=== PATIENT | female | born 1940 | race Caucasian/White ===

== ENCOUNTER 2016-06-23 16:27 | Inpatient (IN) | payer OTHER, BC ==
[~2016-06-23] VITALS: Ht 165.1 cm; Wt 87.5 kg
[2016-06-23] VITALS (8 sets, daily range): BP systolic 144–158; BP diastolic 73–85
[2016-06-23 16:45] LABS: BASE EXCESS -3.8 mEq/L (-3 to +3); BICARBONATE 19.2 mEq/L (22-26); CARBOXY HGB 1.6 % (0-5); COMMENTS - BLOOD GASES +C; FI02 21 %; METHEMOGLOBIN 1.1 % (0-1.5); PCO2 29 mm Hg (35-45); PO2 94 mm Hg (80-100); SITE LR +A; TOTAL RESP RATE 22 resp/min; pH 7.43 (7.35-7.45)
[2016-06-23 17:00] LABS: POINT-OF-CARE METER ID UU14100415
[2016-06-23 17:05] LABS: HEMATOCRIT 39.2 % (36.0-46.0); MCH 30.8 PG (29.0-34.0); MCHC 33.4 G/DL (30.0-36.0); MEAN PLAT.VOLUME 10.5 uM^3 (9.5-12.4); PLATELET COUNT 269 K/uL (156-360); RBC DIS.WIDTH-CV 13.6 % (11.8-14.6); RBC DIS.WIDTH-SD 45.1 % (39-53); RED BLOOD COUNT 4.26 M/uL (3.80-5.20); WHITE BLOOD COUNT 12.3 K/uL (4.1-10.2)
[2016-06-23 17:15] LABS: CHLORIDE 101 mEq/L (99-109); POTASSIUM 4.4 mEq/L (3.7-5.4); SODIUM 138 mEq/L (136-147)
[2016-06-23 17:17] LABS: GLUCOSE 156 mg/dL (70-99)
[2016-06-23 17:18] LABS: ANION GAP 12 MEQ/L (2-14)
[2016-06-23 17:21] LABS: GFR ESTIMATE (CALCULATED) 47 mL/min/; UREA NITROGEN (BUN) 13 mg/dL (9-23)
[2016-06-23 17:28] LABS: TROP-I INTERPRETATION NEGATIVE; TROPONIN-I < 0.01 ng/mL (0.0-0.30)
[2016-06-23 20:23] LABS: EOSINOPHIL (%) 0 % (0-5); HEMATOCRIT 37.8 % (36.0-46.0); IMMATURE GRANULOCYTE (%) 0.2 % (0.0-0.7); LYMPHOCYTE COUNT 0.8 K/uL (1.0-2.8); MCH 31.7 PG (29.0-34.0); MCHC 34.4 G/DL (30.0-36.0); MCV 92.2 FL (83-99); MONOCYTE (%) 4.1 % (3-12); MONOCYTE COUNT 0.4 K/uL (0-0.8); NEUTROPHIL (%) 87.9 % (45-76); NEUTROPHIL COUNT 8.7 K/uL (1.8-6.4); PLATELET COUNT 214 K/uL (156-360); RBC DIS.WIDTH-CV 13.5 % (11.8-14.6); RBC DIS.WIDTH-SD 45.2 % (39-53); WHITE BLOOD COUNT 9.8 K/uL (4.1-10.2)
[2016-06-23 20:46] LABS: ALKALINE PHOSPHATASE 71 IU/L (3-129); ANION GAP 10 MEQ/L (2-14); CHLORIDE 100 MEQ/L (99-109); MAGNESIUM 1.6 mg/dl (1.3-2.7); SAMPLE HEMOLYSIS CHECK 0; SAMPLE ICTERIC CHECK 0; SAMPLE LIPEMIA CHECK 0; SODIUM 134 MEQ/L (136-147); UREA NITROGEN (BUN) 12 mg/dL (9-23)
[2016-06-23 20:47] LABS: GFR ESTIMATE (CALCULATED) > 59 mL/min/; GLUCOSE 105 mg/dL (70-99)
[2016-06-23 21:28] LABS: METH RESISTANT S AUREUS PCR NEGATIVE (NEGATIVE)
[2016-06-23 21:29] LABS: PROBE CHECK PASS; SPECIMEN PROCESSING CONTROL PASS
[2016-06-23 21:33] LABS: ADD MIUA? NO; BILIRUBIN NEGATIVE; BLOOD NEGATIVE; COLOR YELLOW ((YELLOW)); GLUCOSE (STRIP) 50; KETONES 5; LEUKOCYTES NEGATIVE; NITRITE NEGATIVE; PROTEIN (STRIP) NEGATIVE; SPECIFIC GRAVITY 1.006 (1.000-1.030); UCUL ADDED? NO; UROBILINOGEN 0.2 MG/DL (0.2-1.0)
[2016-06-24] VITALS (23 sets, daily range): BP systolic 107–155; BP diastolic 25–79
[2016-06-24 01:00] LABS: CHLORIDE 104 mEq/L (99-109); POTASSIUM 4.1 mEq/L (3.7-5.4); SODIUM 136 mEq/L (136-147)
[2016-06-24 01:01] LABS: MAGNESIUM 1.6 mg/dL (1.3-2.7)
[2016-06-24 01:02] LABS: GLUCOSE 125 mg/dL (70-99)
[2016-06-24 01:04] LABS: ANION GAP 10 MEQ/L (2-14)
[2016-06-24 01:06] LABS: GFR ESTIMATE (CALCULATED) > 59 mL/min/
[2016-06-24 01:07] LABS: UREA NITROGEN (BUN) 10 mg/dL (9-23)
[2016-06-24 01:09] LABS: POINT-OF-CARE METER ID UU14174217; POINT-OF-CARE USER ID RADDRS44
[2016-06-24 05:58] LABS: HEMATOCRIT 35.6 % (36.0-46.0); MCH 32.3 PG (29.0-34.0); MCHC 35.1 G/DL (30.0-36.0); MEAN PLAT.VOLUME 11.3 uM^3 (9.5-12.4); PLATELET COUNT 209 K/uL (156-360); RBC DIS.WIDTH-CV 13.6 % (11.8-14.6); RBC DIS.WIDTH-SD 45.3 % (39-53); RED BLOOD COUNT 3.87 M/uL (3.80-5.20); WHITE BLOOD COUNT 8.9 K/uL (4.1-10.2)
[2016-06-24 06:18] LABS: INTER. NORMALIZED RATIO 1.1; PROTHROMBIN TIME 11.5 (9.2-11.2); PTT 30.6 (25-32)
[2016-06-24 06:19] LABS: ALKALINE PHOSPHATASE 60 IU/L (3-129); ANION GAP 8 MEQ/L (2-14); CHLORIDE 101 MEQ/L (99-109); GFR ESTIMATE (CALCULATED) > 59 mL/min/; GLUCOSE 115 mg/dL (70-99); POTASSIUM 3.6 MEQ/L (3.7-5.4); SAMPLE HEMOLYSIS CHECK 0; SAMPLE ICTERIC CHECK 0; SAMPLE LIPEMIA CHECK 0; SODIUM 134 MEQ/L (136-147); UREA NITROGEN (BUN) 8 mg/dL (9-23)
[2016-06-24 06:30] LABS: MAGNESIUM 1.6 mg/dl (1.3-2.7)
[2016-06-24 06:39] LABS: TOTAL BILIRUBIN 0.7 MG/DL (0.0-1.0)
[2016-06-24 11:24] LABS: POINT-OF-CARE METER ID UU14174217
[2016-06-24 17:16] LABS: POINT-OF-CARE METER ID UU14174217
[2016-06-24 22:29] LABS: ANION GAP 9 MEQ/L (2-14); CHLORIDE 105 MEQ/L (99-109); GFR ESTIMATE (CALCULATED) > 59 mL/min/; GLUCOSE 130 mg/dL (70-99); MAGNESIUM 1.8 mg/dl (1.3-2.7); POTASSIUM 3.6 MEQ/L (3.7-5.4); SAMPLE HEMOLYSIS CHECK 0; SAMPLE ICTERIC CHECK 0; SAMPLE LIPEMIA CHECK 0; SODIUM 139 MEQ/L (136-147); UREA NITROGEN (BUN) 10 mg/dL (9-23)
[2016-06-25] VITALS (12 sets, daily range): BP systolic 119–156; BP diastolic 59–96
[2016-06-25 09:08] LABS: LYME DISEASE SEROLOGY SCREEN NEGATIVE (NEGATIVE)
[2016-06-25 12:35] LABS: TROP-I INTERPRETATION NEGATIVE; TROPONIN-I 0.15 ng/mL (0.0-0.30)
[2016-06-26] VITALS (7 sets, daily range): BP systolic 115–165; BP diastolic 56–71
[2016-06-26] MEDS ORDERED: TRAMADOL HCL50 MG PO ×2 (04:38→04:39)
[2016-06-26 05:45] LABS: EOSINOPHIL COUNT 0.1 K/uL (0-0.3); HEMATOCRIT 35.4 % (36.0-46.0); IMMATURE GRANULOCYTE (%) 0.3 % (0.0-0.7); LYMPHOCYTE COUNT 1.8 K/uL (1.0-2.8); MCH 31.6 PG (29.0-34.0); MCHC 33.9 G/DL (30.0-36.0); MCV 93.2 FL (83-99); MEAN PLAT.VOLUME 11.5 uM^3 (9.5-12.4); MONOCYTE (%) 15.3 % (3-12); MONOCYTE COUNT 1.1 K/uL (0-0.8); NEUTROPHIL (%) 57.6 % (45-76); NEUTROPHIL COUNT 4.1 K/uL (1.8-6.4); PLATELET COUNT 181 K/uL (156-360); RBC DIS.WIDTH-CV 13.8 % (11.8-14.6); WHITE BLOOD COUNT 7.1 K/uL (4.1-10.2)
[2016-06-26 06:15] LABS: ALKALINE PHOSPHATASE 66 IU/L (3-129); ANION GAP 10 MEQ/L (2-14); CHLORIDE 106 MEQ/L (99-109); GFR ESTIMATE (CALCULATED) > 59 mL/min/; POTASSIUM 3.5 MEQ/L (3.7-5.4); SAMPLE HEMOLYSIS CHECK 0; SAMPLE ICTERIC CHECK 0; SAMPLE LIPEMIA CHECK 0; SODIUM 144 MEQ/L (136-147); TOTAL BILIRUBIN 0.6 MG/DL (0.0-1.0); UREA NITROGEN (BUN) 6 mg/dL (9-23)
[2016-06-26 06:22] LABS: GLUCOSE 90 mg/dL (70-99)
[2016-06-26 08:22] LABS: INTACT PARATHYROID HORMONE 63 pg/mL (10-69)
[2016-06-26] MEDS ORDERED: LOSARTAN POTASS25 MG PO (13:25)
[2016-06-26] MEDS ORDERED: CARVEDILOL6.25 MG PO (13:25)
== END 2016-06-26 14:57 | disposition home or self-care (01) | DRG 243 ==
LOC: EME 16:27 → CATH 17:34 → 4WEST 17:35
PROVIDERS: Emergency Medicine; Hospitalist; Internal Medicine Cardiovascular Disease; Internal Medicine Nephrology; Obstetrics & Gynecology
PROC: 02HK3JZ Insertion of Pacemaker Lead into Right Ventricle, Percutaneous Approach (ICD-10-PCS; principal; 2016-06-23)
PROC: 02H63JZ Insertion of Pacemaker Lead into Right Atrium, Percutaneous Approach (ICD-10-PCS; 2016-06-24)
PROC: 02PA3MZ Removal of Cardiac Lead from Heart, Percutaneous Approach (ICD-10-PCS; 2016-06-24)
PROC: 02HK3JZ Insertion of Pacemaker Lead into Right Ventricle, Percutaneous Approach (ICD-10-PCS; 2016-06-24)
PROC: 0JH606Z Insertion of Pacemaker, Dual Chamber into Chest Subcutaneous Tissue and Fascia, Open Approach (ICD-10-PCS; 2016-06-24)
DX: I44.2 Atrioventricular block, complete (principal); I42.9 Cardiomyopathy, unspecified; R55 Syncope and collapse; E87.5 Hyperkalemia; E83.52 Hypercalcemia; F41.9 Anxiety disorder, unspecified; G89.29 Other chronic pain; F10.21 Alcohol dependence, in remission; Z85.3 Personal history of malignant neoplasm of breast; Z87.891 Personal history of nicotine dependence
CPT/HCPCS: 36600; 71010; 80047; 80048; 80048 91; 80053; 81003; 82330; 82803; 82948; 83605; 83735; 83880; 83970; 84100; 84443; 84484; 84999; 85025; 85027; 85610; 85730; 86618; 87641; 93005; 93306; 94799; 99281; 99285; C1779; C1785; C1892; C1894; C1898; J0690; J1200; J1644; J1815; J2060; J2250; J2405; J3010; S0020; S0028

== ENCOUNTER → 2016-07-26 | Outpatient (CLI) | payer OTHER, BC ==
[~2016-07-26] MED LIST: CARVEDILOL6.25 MG PO; LOSARTAN POTASS25 MG PO; TRAMADOL HCL50 MG PO
== END | disposition home or self-care (01) ==
LOC: NUC 07-21 07:30
DX: R94.31 Abnormal electrocardiogram [ECG] [EKG] (principal); I42.9 Cardiomyopathy, unspecified
CPT/HCPCS: 78452; 93017; A9500; J2785

== ENCOUNTER 2017-05-05 22:25 | Emergency (ER) | payer OTHER, BC ==
[~2017-05-05] VITALS: Ht 165.1 cm; Wt 63.3 kg
[2017-05-06 02:50] VITALS: BP 122/66
== END 2017-05-06 02:50 ==
LOC: EME → EDBD 22:25 → EME 22:25
DX: S70.02XA Contusion of left hip, initial encounter (principal); W19.XXXA Unspecified fall, initial encounter
CPT/HCPCS: 73502; 99281; 99283

== ENCOUNTER 2017-05-15 04:22 | Emergency (ER) | payer OTHER, BC ==
[~2017-05-15] VITALS: Ht 165.1 cm; Wt 90.9 kg
[2017-05-15 10:00] VITALS: BP 114/72
[2017-05-15] MEDS ORDERED: IBUPROFEN400 MG PO (11:30)
[2017-05-15] MEDS ORDERED: PERCOCET 5/31 TABLET PO (11:30)
== END 2017-05-15 11:55 ==
LOC: EME 04:22
DX: M25.552 Pain in left hip (principal); S70.02XD Contusion of left hip, subsequent encounter; W18.30XD Fall on same level, unspecified, subsequent encounter
CPT/HCPCS: 73700

== ENCOUNTER 2017-05-17 15:23 | Inpatient (IN) | payer OTHER, BC ==
[~2017-05-17] VITALS: Ht 165.1 cm; Wt 95.1 kg
[~2017-05-17 15:23] MED LIST changes: +IBUPROFEN400 MG PO; +PERCOCET 5/31 TABLET PO
[2017-05-17 16:24] LABS: BASOPHIL (%) 0.4 % (0-1); EOSINOPHIL COUNT 0.1 K/uL (0-0.3); HEMATOCRIT 39.7 % (36.0-46.0); HEMOGLOBIN 13.3 G/DL (11.9-15.5); IMMATURE GRANULOCYTE (%) 0.8 % (0.0-0.7); LYMPHOCYTE (%) 10.8 % (15-42); MCH 30.2 PG (29.0-34.0); MCHC 33.5 G/DL (30.0-36.0); MCV 90.2 FL (83-99); MONOCYTE (%) 9.3 % (3-12); MONOCYTE COUNT 0.8 K/uL (0-0.8); NEUTROPHIL (%) 77.7 % (45-76); PLATELET COUNT 302 K/uL (156-360); RBC DIS.WIDTH-CV 15.2 % (11.8-14.6); RBC DIS.WIDTH-SD 50.4 % (39-53)
[2017-05-17 16:32] LABS: CHLORIDE 103 mEq/L (99-109); POTASSIUM 3.7 mEq/L (3.7-5.4); SODIUM 140 mEq/L (136-147)
[2017-05-17 16:34] LABS: GLUCOSE 118 mg/dL (70-99)
[2017-05-17 16:38] LABS: CREATININE 0.7 mg/dL (0.6-1.3); GFR ESTIMATE (CALCULATED) > 59 mL/min/
[2017-05-17 16:39] LABS: UREA NITROGEN (BUN) 16 mg/dL (9-23)
[2017-05-17 19:56] LABS: APPEARANCE TURBID ((CLEAR)); BILIRUBIN NEGATIVE; BLOOD MODERATE; COLOR AMBER ((YELLOW)); GLUCOSE (STRIP) NEGATIVE; KETONES 5; LEUKOCYTES LARGE; NITRITE NEGATIVE; PROTEIN (STRIP) 100; SPECIFIC GRAVITY 1.011 (1.000-1.030); UROBILINOGEN 0.2 MG/DL (0.2-1.0)
[2017-05-17 20:20] LABS: EPITHELIAL CELLS 3+ /HPF
[2017-05-17 20:21] LABS: BACTERIA 4+ /HPF; MUCUS NONE SEEN /LPF; RED BLOOD CELLS NONE SEEN /HPF (0-5); WHITE BLOOD CELLS TNTC /HPF (0-5)
[2017-05-17] MEDS ORDERED: IBUPROFEN600 MG PO (20:35)
[2017-05-17] MEDS ORDERED: DAILY VITE1 EAC1 PO (20:35)
[2017-05-17] MEDS ORDERED: VITAMIN D31000 UNIT PO (20:35)
[2017-05-17] MEDS ORDERED: COZAAR25 MG PO (20:35)
[2017-05-18 04:37] VITALS: BP 162/97
[2017-05-18 05:34] LABS: BASOPHIL (%) 0.3 % (0-1); EOSINOPHIL (%) 0 % (0-5); HEMATOCRIT 41.5 % (36.0-46.0); HEMOGLOBIN 13.6 G/DL (11.9-15.5); IMMATURE GRANULOCYTE (%) 0.5 % (0.0-0.7); LYMPHOCYTE COUNT 0.7 K/uL (1.0-2.8); MCH 29.4 PG (29.0-34.0); MCHC 32.8 G/DL (30.0-36.0); MCV 89.8 FL (83-99); MONOCYTE COUNT 0.2 K/uL (0-0.8); NEUTROPHIL (%) 88.2 % (45-76); NEUTROPHIL COUNT 6.6 K/uL (1.8-6.4); PLATELET COUNT 328 K/uL (156-360); RBC DIS.WIDTH-CV 15.2 % (11.8-14.6); RBC DIS.WIDTH-SD 50.2 % (39-53); RED BLOOD COUNT 4.62 M/uL (3.80-5.20); WHITE BLOOD COUNT 7.5 K/uL (4.1-10.2)
[2017-05-18 05:55] LABS: CHLORIDE 102 MEQ/L (99-109); CREATININE 0.5 MG/DL (0.6-1.3); GFR ESTIMATE (CALCULATED) > 59 mL/min/; GLUCOSE 126 mg/dL (70-99); POTASSIUM 4.2 MEQ/L (3.7-5.4); SODIUM 140 MEQ/L (136-147); UREA NITROGEN (BUN) 17 mg/dL (9-23)
[2017-05-18 08:12] VITALS: BP 152/84
[2017-05-18 11:52] VITALS: BP 129/66
[2017-05-18 16:20] VITALS: BP 134/72
[2017-05-18 20:24] VITALS: BP 149/71
[2017-05-18 23:59] VITALS: BP 147/66
[2017-05-19 03:50] VITALS: BP 154/70
[2017-05-19 08:40] VITALS: BP 132/69
[2017-05-19 12:27] VITALS: BP 148/70
[2017-05-19 16:30] VITALS: BP 136/82
[2017-05-19 19:54] VITALS: BP 125/68
[2017-05-20 00:06] VITALS: BP 132/65
[2017-05-20 04:14] VITALS: BP 140/69
[2017-05-20 08:30] VITALS: BP 162/78
[2017-05-20 13:05] VITALS: BP 155/75
[2017-05-20 15:00] VITALS: BP 120/62
[2017-05-20 19:42] VITALS: BP 141/72
[2017-05-21 00:18] VITALS: BP 151/67
[2017-05-21 08:30] VITALS: BP 145/67
[2017-05-21 12:14] VITALS: BP 158/77
[2017-05-21 16:56] VITALS: BP 125/65
[2017-05-21 20:52] VITALS: BP 139/67
[2017-05-21 23:14] VITALS: BP 126/66
[2017-05-22 08:29] VITALS: BP 162/77
[2017-05-22 09:48] VITALS: BP 162/77
[2017-05-22] MEDS ORDERED: SENNA PLUS TAB1 EACH PO (15:08)
[2017-05-22] MEDS ORDERED: BISACODYL5 MG PO (15:08)
[2017-05-22] MEDS ORDERED: GABAPENTIN100 MG PO (15:08)
[2017-05-22] MEDS ORDERED: Salonpas 4% Patch TD (15:09)
[2017-05-22] MEDS ORDERED: DEXAMETHASONE4 MG PO (15:09)
[2017-05-22] MEDS ORDERED: MORPHINE SULFAT15 M1 PO (15:10)
[2017-05-22] MEDS ORDERED: ENDOCET 5-3251 EACH PO (15:10)
== END 2017-05-22 19:40 | DRG 552 ==
LOC: EME 15:23 → EDOF 20:36 → 3EAST 20:36 → ENRESERV 20:46 → 3EAST 05-18 04:20
PROVIDERS: Emergency Medicine; Hospitalist
DX: S32.049A Unspecified fracture of fourth lumbar vertebra, initial encounter for closed fracture (principal); M84.48XA Pathological fracture, other site, initial encounter for fracture; S32.059A Unspecified fracture of fifth lumbar vertebra, initial encounter for closed fracture; W01.0XXA Fall on same level from slipping, tripping and stumbling without subsequent striking against object, initial encounter; I42.9 Cardiomyopathy, unspecified; G89.29 Other chronic pain; N39.0 Urinary tract infection, site not specified; N39.490 Overflow incontinence; Y92.009 Unspecified place in unspecified non-institutional (private) residence as the place of occurrence of the external cause; Z95.0 Presence of cardiac pacemaker; Z85.3 Personal history of malignant neoplasm of breast
CPT/HCPCS: 62304; 71046; 71250; 72131; 72132; 73700; 80048; 81003; 85025; 97530 GP; 99281; 99284; 99285; J0696; J1100; J1644; J1885; J2270; J8540